=== PATIENT | male | born 1970 | race Asian ===

== ENCOUNTER 2016-11-18 07:10 | Outpatient (CLI) | payer OTHER ==
[2016-11-18 07:58] LABS: % BASOPHILS 0.2 % (0.0-2.0); % EOSINOPHILS 1.1 % (0.0-5.0); % LYMPHOCYTES 32.1 % (20.0-50.0); % MONOCYTES 4.7 % (2.0-10.0); % NEUTROPHILS 61.9 % (40.0-80.0); HEMATOCRIT 47.7 % (39.0-49.0); MEAN CELL VOLUME 94.1 fl (80-99); MEAN CORPUSCULAR HEMOGLOBIN 31.6 pg (26.0-30.0); MEAN CORPUSCULAR HGB CONC 33.6 pg (28.0-36.0); NEUTROPHILE ABSOLUTE 4.7 Th/cmm (1.8-8.0); PLATELET COUNT 217 Th/cmm (150-400); RED BLOOD COUNT 5.07 Mil/cmm (4.30-5.70); RED CELL DISTRIBUTION WIDTH 11.9 % (11.5-20.0); WHITE BLOOD COUNT 7.7 Th/cmm (4.8-10.8)
[2016-11-18 08:11] LABS: PROTHROMBIN TIME (TEST) 9.9 SECONDS (9.5-11.5)
[2016-11-18 09:35] LABS: ANION GAP 10.2 (7.0-16.0); BUN - UREA NITROGEN 12 mg/dL (7-25); CALCIUM SERUM 11.5 mg/dL (8.6-10.3); CARBON DIOXIDE 26.4 mEq/L (21.0-31.0); CHLORIDE 105 mEq/L (98-107); CREATININE - SERUM 1.2 mg/dL (0.7-1.3); GLUCOSE 105 mg/dL (70-105); POTASSIUM SERUM 4.6 mEq/L (3.5-5.1); SODIUM SERUM 137 mEq/L (136-145)
[2016-11-18 09:55] LABS: URINE COLOR YELLOW
[2016-11-18 09:56] LABS: URINE BACTERIA NONE SEEN /hpf (NONE SEEN); URINE BILIRUBIN NEGATIVE (NEGATIVE); URINE BLOOD MODERATE (NEGATIVE); URINE EPITHELIAL CELLS OCCASIONAL /lpf (FEW); URINE GLUCOSE (UA) NEGATIVE (NEGATIVE); URINE KETONE NEGATIVE (NEGATIVE); URINE PH 5.5; URINE PROTEIN NEGATIVE (NEGATIVE); URINE RBC 20-30 /hpf (0-5); URINE UROBILINOGEN 0.2 E.U./dL (0.2 - 1.0); URINE WBC 0-2 /hpf (0-5)
== END 2016-11-18 08:00 | disposition home or self-care (01) ==
LOC: LAB 07:10
DX: N20.1 Calculus of ureter (principal)
CPT/HCPCS: 36415-UA; 80048-TC; 81001-TC; 85025-TC; 85610-TC; 87086-90

== ENCOUNTER 2016-12-24 08:23 | Outpatient (CLI) | payer OTHER ==
[2016-12-24 10:17] LABS: % BASOPHILS 0.3 % (0.0-2.0); % EOSINOPHILS 0.8 % (0.0-5.0); % MONOCYTES 5.9 % (2.0-10.0); HEMATOCRIT 46.1 % (39.0-49.0); HEMOGLOBIN 15.6 gm/dL (13.2-17.3); MEAN CELL VOLUME 91.9 fl (80-99); MEAN CORPUSCULAR HEMOGLOBIN 31.2 pg (26.0-30.0); MEAN CORPUSCULAR HGB CONC 33.9 pg (28.0-36.0); MEAN PLATELET VOLUME 8.1 fl; NEUTROPHILE ABSOLUTE 4.7 Th/cmm (1.8-8.0); PLATELET COUNT 215 Th/cmm (150-400); RED BLOOD COUNT 5.01 Mil/cmm (4.30-5.70); RED CELL DISTRIBUTION WIDTH 11.7 % (11.5-20.0)
[2016-12-24 10:52] LABS: PROTHROMBIN TIME (TEST) 9.9 SECONDS (9.5-11.5)
[2016-12-24 11:48] LABS: ANION GAP 8.7 (7.0-16.0); BUN - UREA NITROGEN 19 mg/dL (7-25); BUN/CREATININE RATIO 15.8; CALCIUM SERUM 11.2 mg/dL (8.6-10.3); CARBON DIOXIDE 26.4 mEq/L (21.0-31.0); CHLORIDE 104 mEq/L (98-107); CREATININE - SERUM 1.2 mg/dL (0.7-1.3); GLUCOSE 96 mg/dL (70-105); POTASSIUM SERUM 4.1 mEq/L (3.5-5.1); SODIUM SERUM 135 mEq/L (136-145)
[2016-12-24 12:30] LABS: URINE BILIRUBIN NEGATIVE (NEGATIVE); URINE BLOOD LARGE (NEGATIVE); URINE COLOR YELLOW; URINE GLUCOSE (UA) NEGATIVE (NEGATIVE); URINE KETONE NEGATIVE (NEGATIVE); URINE PROTEIN 100 mg/dL (NEGATIVE); URINE UROBILINOGEN 0.2 E.U./dL (0.2 - 1.0)
[2016-12-24 12:31] LABS: URINE BACTERIA NONE SEEN /hpf (NONE SEEN); URINE EPITHELIAL CELLS RARE /lpf (FEW); URINE RBC 50-60 /hpf (0-5)
== END 2016-12-24 12:50 | disposition home or self-care (01) ==
LOC: LAB 08:23
DX: Z01.818 Encounter for other preprocedural examination (principal); N20.1 Calculus of ureter
CPT/HCPCS: 36415-UA; 80048-TC; 81001-TC; 85025-TC; 85610-TC; 85730-TC; 87086-90

== ENCOUNTER 2017-01-27 08:05 | Outpatient (CLI) | payer OTHER ==
[2017-01-31 04:17] LABS: CALCIUM URINE 5.1 mg/dL (Not Estab.); MAGNESIUM RANDOM/24HR 3.5 mg/dL (Not Estab.); PHOSPHORUS URINE 20.1 mg/dL (Not Estab.); URIC ACID URINE 15.5 mg/dL (Not Estab.)
== END 2017-01-27 14:48 | disposition home or self-care (01) ==
LOC: LAB 08:05
DX: N20.1 Calculus of ureter (principal)
CPT/HCPCS: 81050-TC; 82340-90; 82507-90; 82570-TC; 83735-90; 83945-90; 84105-90; 84560-90